=== PATIENT | female | born 1970 | race Caucasian/White ===

== ENCOUNTER → 2024-09-07 | Outpatient (CLI) | payer BC, SELFPAY ==
[2024-09-07 11:35] LABS: Basophils # (Auto) 0.1 Thou/mm3 (0.0-0.2); Basophils % (Auto) 1 % (0-2.5); Eosinophils # (Auto) 0.1 Thou/mm3 (0.0-0.5); Eosinophils % (Auto) 2 % (0-10); Hematocrit 48.8 % (36.0-46.0); Hemoglobin 15.8 g/dL (12.0-16.0); Immature Granulocytes % (Auto) 0 % (0-0); Immature Granulocytes Auto 0.02 Thou/mm3 (0.00-0.00); Lymphocytes # (Auto) 1.8 Thou/mm3 (1.0-4.8); Lymphocytes % (Auto) 28 % (10-50); Mean Corpuscular HGB Conc 32.4 g/dl (31.0-37.0); Mean Corpuscular Hemoglobin 28.1 pg (25.0-35.0); Mean Corpuscular Volume 87 fL (80-100); Monocytes # (Auto) 0.4 Thou/mm3 (0.0-0.8); Monocytes % (Auto) 6 % (0-12); Neutrophils # (Auto) 4.1 Thou/mm3 (1.8-7.7); Neutrophils % (Auto) 63 % (37-80); Nucleated Red Blood Cell % 0 /100 WBC (0); Platelet Count 260 Thou/mm3 (140-440); RDW Standard Deviation 41.5 fL (36.4-46.3); Red Blood Count 5.62 Miln/mm3 (4.00-5.20); White Blood Count 6.5 Thou/mm3 (3.6-11.0)
[2024-09-07 11:59] LABS: Glucose Estimated Average 111 mg/dL (80-131); Hemoglobin A1C 5.5 % Hgb (4.8-6.0)
[2024-09-07 12:03] LABS: Alanine Aminotransferase 27 U/L (10-49); Albumin, Serum 4.8 gm/dL (3.5-5.0); Albumin/Globulin Ratio 2.4 (1.2-2.2); Alkaline Phosphatase 74 U/L (46-116); Anion Gap 5 (7-16); Aspartate Amino Transferase 16 U/L (0-34); BUN/Creatinine Ratio 20 Ratio (12-20); Bilirubin,Total 0.8 mg/dL (0.3-1.2); Blood Urea Nitrogen 14 mg/dL (9-23); Calcium 9.9 mg/dL (8.3-10.6); Calcium (Corrected) 9.9 mg/dL (8.5-10.1); Carbon Dioxide 32.1 mMol/L (20.0-31.0); Cardiac Risk Estimate 2.6 RATIO (3.7-5.6); Chloride 103 mMol/L (98-107); Cholesterol 170 mg/dL (132-200); Creatinine (Component) 0.7 mg/dL (0.6-1.3); Glucose 90 mg/dL (74-106); HDL Cholesterol 65 mg/dL (40-60); LDL Cholesterol,Calculated 74 mg/dL (0-130); Osmolality,Calculated 279 (275-295); Potassium 4.4 mMol/L (3.4-5.1); Sodium 140 mMol/L (136-145); Total Protein 6.8 gm/dL (5.7-8.2); Triglycerides 154 mg/dL (30-150); eGFR > 60 See Note
== END | disposition home or self-care (01) ==
LOC: COPL 11:07
PROVIDERS: PCP Internal Medicine; Referring Provider Internal Medicine; Visit Provider Internal Medicine
DX: E78.5 Hyperlipidemia, unspecified (principal); I10 Essential (primary) hypertension
CPT/HCPCS: 36415; 80053; 80061; 83036; 85025

== ENCOUNTER → 2025-03-28 | Outpatient (CLI) | payer BC, SELFPAY ==
--- NOTE | 2025-03-28 | XR_ITS ---
EXAMINATION: Ankle, right 3 views . Technique: Ankle AP, oblique, lateral 3 views Date and time of exam: March 28, 2025 1303 hours INDICATIONS: Right ankle pain 6 months. FINDINGS: Early osteoarthritis tibiotalar joint. No fracture or dislocation IMPRESSION: Early osteoarthritis tibiotalar joint
== END | disposition home or self-care (01) ==
PROVIDERS: PCP Internal Medicine; Referring Provider Internal Medicine; Visit Provider Internal Medicine
DX: M19.071 Primary osteoarthritis, right ankle and foot (principal)
CPT/HCPCS: 73610

== ENCOUNTER 2025-06-07 11:11 | Emergency (ER) | payer BC, SELFPAY ==
[2025-06-07 11:13] VITALS: PULSE 74; RESP 20; O2SAT 97; BMI 25.9
--- NOTE | 2025-06-07 11:16 | EKG_ITS ---
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
--- NOTE | 2025-06-07 11:16 | PD.EDADULT ---
ED General RME/HPI General Chief complaint: Arrhythmia/Palpitations Stated complaint: PALPITATIONS Time Seen by Provider: 06/07/25 11:15 Arrival date/time: 06/07/25 11:11 CC: Palpitations HPI patient presents to the ER via EMS with stable vital signs who report the patient had palpitations and a flushed sensation up in his face that went down into her back with bilateral back pain and then the episode slowly resolved. Currently the patient states she has only a headache. Patient has had multiple episodes similar to this 1 in the past. Patient is worked up by Dr. Avery for the same complaint. Currently patient has a heart rate of 80. Related Data Allergies Allergy/AdvReac Type Severity Reaction Status Date / Time Sulfa (Sulfonamide Allergy Severe Anaphylaxis Verified 03/03/12 13:36 Antibiotics) meperidine Allergy Mild EYE LIDS Verified 03/03/12 13:36 SWELL/ITCH Review of Systems Review of Systems Narrative Review of Systems: GEN: No fever, no chills, no weight loss EYES: No discharge, no visual changes, no pain HEENT: No ear pain, no congestion, no sore throat PULM: No shortness of breath, no cough, no congestion CV: No chest pain, no dyspnea on exertion, no palpitations GI: No nausea, no vomiting, no diarrhea, no pain, no constipation : No frequency, no urgency, no dysuria MUSC/SKEL: No joint pain, no back pain SKIN: No rash PSYCH: No hallucinations, no depression HEME/LYMPH: No easy bleeding or bruising tendencies NEURO: No weakness, no headache ED Exam Narrative Physical exam: [General: Not in any acute distress Head normocephalic HEENT: Within acceptable limits Neck is supple nontender Chest equal chest rise nontender to palpation Respiratory: Clear to auscultation no wheezes crackles or rubs CV: Rate rhythm is regular no murmurs rubs or clicks Abdomen is soft nontender no masses positive bowel sounds all 4 quadrants Back: No CVA tenderness no spinous process tenderness from cervical spine thoracic and lumbar spine Skin: Intact no petechiae rash induration ulceration or crepitus Extremities: Moving all extremity against resistance cap refill less than 2 seconds neurosensory intact. No lower extremity edema. Neuro: Awake alert oriented x3 Glascow coma 15 no focal deficits] Course Course Course Narrative: Patient has had no recurrence of these events flushed sensation or palpitations since the initial 1. Patient will be discharged home to follow-up with Dr. Avery. If there is a worsening of symptoms she can return the emergency room for reevaluation. Quality Measures none Orders Category Date Time Status EKG (ED ONLY) *Do not use* NOW Care 06/07/25 11:16 Completed EKG (ED Only) Stat Exams 06/07/25 11:16 Draft B-Type Natriuretic Peptide Stat Lab 06/07/25 11:48 Completed CBC Stat Lab 06/07/25 11:48 Completed Comprehensive Metabolic Panel Stat Lab 06/07/25 11:48 Completed Drug Screen,Urine Stat Lab 06/07/25 11:59 Completed LDH (Lactate Dehydrogenase) Stat Lab 06/07/25 11:48 Completed Magnesium Stat Lab 06/07/25 11:48 Completed Partial Thromboplastin Time Stat Lab 06/07/25 11:48 Completed Prothrombin Time with INR Stat Lab 06/07/25 11:48 Completed Troponin I Stat Lab 06/07/25 11:48 Completed Urinalysis, C/S if Indicated Stat Lab 06/07/25 11:59 Completed Urine Culture Stat Lab 06/07/25 11:59 Received hydrALAZINE INJ [Apresoline Inj] Med 06/07/25 11:52 Discontinued 10 mg IVP X1 ONE Vital Signs Vital signs: Vital Signs Temperature 98.4 F 06/07/25 11:17 Pulse Rate 80 06/07/25 11:17 Respiratory Rate 19 06/07/25 11:17 Blood Pressure 179/112 H 06/07/25 11:17 Pulse Oximetry (%) 98 06/07/25 11:17 Oxygen Delivery Method Room Air 06/07/25 11:17 Discharge Plan Plan Patient Disposition: HOME (Self Care) Patient condition on transfer: Stable Prescriptions/Referrals Referrals: No Primary/Family,Physician [Primary Care Provider] - In 1 week Wilson Avery MD [Physician, Cardiology] - In 1 week Problem List Clinical Impression: Palpitations Patient/Caregiver Discharge Instructions Education Materials: ED Palpitations Print Language: Maltese Stand Alone Forms: [facility]amante Award Info., Work/School Release, Patient Portal Info Letter PA/KILN MAINTENANCE Supervising Physician PA/KILN MAINTENANCE Supervising Physician: hCristopher Butler ENP [facility] Clinical Information Provided by: patient and EMS Medical Records reviewed [facility] and EMS Medical Records additional comments: Patient has no records at this facility. Meds/Rx considered, not ordered None Labs/Rad/Tests considered, not ordered None Chronic Illness/Social Conditions which may negatively complicate care or outcome(s)-explain: None or not applicable EKG Interpretation EKG #1: EKG Interpretation: EKG performed at 1139 shows a ventricular rate of 70 NV interval 165 QRS of 70 QTc of 393 sinus rhythm. No no acute EKG for comparison. Labs Labs: interpreted by me Lab(s) Interpretation(s): CBC shows no acute leukocytosis anemia thrombocytopenia Coags within acceptable limits CMP shows no significant electrolyte imbalances renal impairment transaminitis or T. bili elevation Troponin is unremarkable BMP is unremarkable. Urine is negative for urinary tract infection. UDS is negative. Imaging Imaging interpretation: interpreted by me Medication Administration(s) Medication Administration History Discontinued Medications Hydralazine HCl (Hydralazine Inj 20 Mg/Ml Vial) 10 mg IVP X1 ONE Stop: 06/07/25 11:53
[2025-06-07 11:17] VITALS: BP 173/109; BP 179/112; PULSE 80; RESP 19; TEMP 36.9; O2SAT 98
[2025-06-07 11:31] VITALS: PULSE 69
[2025-06-07 12:06] VITALS: BP 133/92; PULSE 68; RESP 19; O2SAT 98
[2025-06-07 12:28] LABS: Collection Type, Urine Clean Catch
[2025-06-07 12:37] LABS: Basophils # (Auto) 0.1 Thou/mm3 (0.0-0.2); Basophils % (Auto) 1 % (0-2.5); Eosinophils # (Auto) 0.1 Thou/mm3 (0.0-0.5); Eosinophils % (Auto) 1 % (0-10); Hematocrit 46.2 % (36.0-46.0); Hemoglobin 15.6 g/dL (12.0-16.0); Immature Granulocytes Auto 0.04 Thou/mm3 (0.00-0.00); Lymphocytes # (Auto) 1.5 Thou/mm3 (1.0-4.8); Lymphocytes % (Auto) 26 % (10-50); Mean Corpuscular HGB Conc 33.8 g/dl (31.0-37.0); Mean Corpuscular Hemoglobin 29.4 pg (25.0-35.0); Mean Corpuscular Volume 87 fL (80-100); Monocytes # (Auto) 0.4 Thou/mm3 (0.0-0.8); Monocytes % (Auto) 6 % (0-12); Neutrophils # (Auto) 3.9 Thou/mm3 (1.8-7.7); Neutrophils % (Auto) 65 % (37-80); Nucleated Red Blood Cell # 0.00 Thou/mm3 (0.00-0.00); Nucleated Red Blood Cell % 0 /100 WBC (0); Platelet Count 227 Thou/mm3 (140-440); RDW Standard Deviation 41.4 fL (36.4-46.3); Red Blood Count 5.31 Miln/mm3 (4.00-5.20); White Blood Count 5.9 Thou/mm3 (3.6-11.0)
[2025-06-07 12:54] LABS: INR 1.1 (0.9-1.3); Partial Thromboplastin Time 26.9 Seconds (22.0-36.0); Prothrombin Time 11.5 Seconds (9.0-12.2)
[2025-06-07 12:58] LABS: B-Type Natriuretic Peptide 39 pg/mL (0-100)
[2025-06-07 13:03] LABS: Alanine Aminotransferase 16 U/L (10-49); Albumin, Serum 4.5 gm/dL (3.5-5.0); Albumin/Globulin Ratio 2.0 (1.2-2.2); Alkaline Phosphatase 60 U/L (46-116); Anion Gap 10 (7-16); Aspartate Amino Transferase 16 U/L (0-34); BUN/Creatinine Ratio 19 Ratio (12-20); Bilirubin,Total 0.6 mg/dL (0.3-1.2); Blood Urea Nitrogen 13 mg/dL (9-23); Calcium 10.1 mg/dL (8.3-10.6); Calcium (Corrected) 10.1 mg/dL (8.5-10.1); Carbon Dioxide 27.5 mMol/L (20.0-31.0); Chloride 103 mMol/L (98-107); Creatinine (Component) 0.7 mg/dL (0.6-1.3); Estimated Creatinine Clearance 101.5 mL/min (>60); Globulin 2.2 gm/dL (2.3-3.5); Glucose 99 mg/dL (74-106); LDH (Lactate Dehydrogenase) 188 U/L (120-246); Magnesium 1.8 mg/dL (1.6-2.6); Osmolality,Calculated 279 (275-295); Potassium 4.3 mMol/L (3.4-5.1); Sodium 140 mMol/L (136-145); Total Protein 6.7 gm/dL (5.7-8.2); Troponin I < 0.002 ng/mL (0.0-0.045); eGFR > 60 See Note
[2025-06-07 13:04] LABS: Bilirubin,Urine Negative (Negative); Blood,Urine Trace (Negative); Clarity,Urine Clear (Clear/Hazy); Color,Urine Colorless (Lt Yel-Yel); Glucose, Urine Negative (Negative); Ketones,Urine Negative (Negative); Leukocyte Esterase,Urine Positive (Negative); Nitrite,Urine Negative (Negative); PH,Urine 6.0 (5.0-7.0); Protein,Urine Negative (Neg - Trace); RBC,Urine 1 /hpf (0-3); Specific Gravity,Urine 1.011 (1.001-1.035); Squamous Epithelial Cell,Urine 1 /hpf (0-5); Urobilinogen,Urine Negative mg/dL (0.0-1.0); WBC,Urine 11 /hpf (0-5)
[2025-06-07 13:07] LABS: Amphetamine/Methamp Scrn,U Negative (Negative); Barbiturate Screen,Urine Negative (Negative); Benzodiazepines Screen,Urine Negative (Negative); Benzoylecgonine Screen, Ur Negative (Negative); Fentanyl Screen,Urine Negative (Negative); Opiate Screen,Urine Negative (Negative); THC Screen,Urine Negative (Negative)
[2025-06-07 13:22] LABS: Culture Indicated,Urine Yes
[2025-06-07 13:30] VITALS: BP 140/91; PULSE 69; RESP 19; O2SAT 97
[2025-06-07 14:31] VITALS: BP 139/100; PULSE 70; RESP 18; O2SAT 97
== END 2025-06-07 14:33 | disposition home or self-care (01) ==
PROVIDERS: Registered Nurse General Practice; Emergency Provider Emergency Medicine
DX: R00.2 Palpitations (principal)
CPT/HCPCS: 36415; 80053; 80307; 81001; 83615; 83735; 83880; 84484; 85025; 85610; 85730; 87086; 93005; 99283

== ENCOUNTER → 2025-07-09 | Outpatient (CLI) | payer BC, SELFPAY ==
--- NOTE | 2025-07-09 10:30 | XR_ITS ---
Examination: MRI brain without intravenous contrast. Date and time of exam: July 09, 2025, 11:00 a.m. INDICATIONS: Dizziness episodes of numbness in the left leg and right flank pain 3 years Technique: Multiple axial and sagittal images of the brain obtained. Siemens high-resolution 1.5 Lamar short bore scanners utilized. Sagittal sections, T1-weighted, TR 500, TE 14, are performed. Axial sections proton-density and T2-weighted have been obtained. Inversion recovery axial images, TR 9, 260, TE 111, TI 2500. Diffusion weighted images, axial sections, TR 4800, TE 128, B value 1000 Axial sections, ADC map, TR 4800, TE 128 Findings: Enlargement of the sella turcica is not present. The optic chiasm and infundibular are not remarkable. Prepontine and interpeduncular cisterns are not enlarged. There is no localized enlargement of the medulla or ruth. Fourth ventricle and cerebellar tonsils appear normal in position. No subacute area of hemorrhage density is seen. Mass in the cerebellopontine angle region is not evident. Globes symmetrical. Orbital musculature including medial lateral rectus muscles do not exhibit abnormality. Diffusion-weighted images demonstrate no focus of restricted diffusion. Increased white matter signal evident, punctate foci of increased signal in the frontoparietal white matter Mass effect upon the ventricular system is not identified. 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
== END | disposition home or self-care (01) ==
LOC: SMRI 07-14 07:54
PROVIDERS: PCP Internal Medicine; Referring Provider Internal Medicine; Visit Provider Internal Medicine
DX: R90.82 White matter disease, unspecified (principal); G37.9 Demyelinating disease of central nervous system, unspecified
CPT/HCPCS: 70551